=== PATIENT | male | born 1980 | race African-American/Black ===

== ENCOUNTER 2017-06-28 21:25 | Inpatient (IN) | payer OTHER ==
[2017-06-28] MEDS ORDERED: Ondansetron HCl/PF 4 MG/2 ML Vial ONE (22:19)
[2017-06-28 22:59] LABS: #Eosinphils 0.1 thou/uL (0.0-0.7); #Lymphocytes 2.3 thou/uL (1.20-3.40); #Monocytes 1.7 thou/uL (0.11-0.59); #Neutrophils 13.5 thou/uL (1.40-6.50); %Eosinophils 0.8 % (0.0-10.0); %Lymphocytes 13.2 % (21.0-51.0); %Monocytes 9.6 % (0.0-10.0); Hematocrit 28.4 % (42.0-52.0); Mean Platelet Volume 5.3 fL (7.4-10.4); Red Blood Cell (RBC) Count 3.23 mill/uL (4.70-6.10); White Blood Cell (WBC) Count 17.7 thou/uL (4.8-10.8)
[2017-06-28 23:04] LABS: Prothrombin Time 13.9 SEC (12.0-14.7)
[2017-06-28 23:05] LABS: PTT 36.3 SEC (22.9-36.1)
[2017-06-28] MEDS ORDERED: Pantoprazole 40 MG VIAL ONE (23:10)
[2017-06-28] MEDS ORDERED: Pantoprazole 80 MG, Admixture Fee 1 EACH in Sodium Chloride 0.9% 100 ML IVP SCH (23:15)
[2017-06-28 23:19] LABS: ALT (SGPT) 8 U/L (8-55); AST (SGOT) 9 U/L (5-34); Alkaline Phosphatase 56 U/L (40-150); Anion Gap 20 mmol/L (10-20); BUN (Urea Nitrogen) 15 mg/dL (8.9-20.6); Bilirubin, Total 0.2 mg/dL (0.2-1.2); Calc. Creatinine Clearance 0 mL/min (70-130); Calcium 8.4 mg/dL (7.8-10.44); Carbon Dioxide 26 mmol/L (22-29); Chloride 91 mmol/L (98-107); Estimated GFR-MDRD 90; Globulin 3.7 g/dL (2.4-3.5); Protein, Total 6.3 g/dL (6.0-8.3)
[2017-06-29] MEDS ORDERED: Ondansetron HCl/PF 4 MG/2 ML Vial IVP PRN (00:35)
[2017-06-29] MEDS ORDERED: Ondansetron ODT 4 MG TAB SL PRN (00:35)
[2017-06-29 01:37] VITALS: BMI 21.4
[2017-06-29] MEDS ORDERED: Non-Formulary Item 1 EACH (Prednisone [Prednisone] 10 MG) PO SCH (03:00)
[2017-06-29] MEDS ORDERED: HYDROcodone/Acetaminophen 5/325 mg Tablet PO PRN (03:01)
[2017-06-29] MEDS ORDERED: 1/2 NS w/KCL 20 mEq 1,000 ML IV SCH (03:30)
[2017-06-29 05:30] LABS: Anion Gap 18 mmol/L (10-20); BUN (Urea Nitrogen) 15 mg/dL (8.9-20.6); Calc. Creatinine Clearance 106 mL/min (70-130); Calcium 8.3 mg/dL (7.8-10.44); Carbon Dioxide 27 mmol/L (22-29); Chloride 91 mmol/L (98-107); Estimated GFR-MDRD Greater than 90; Magnesium 2.1 mg/dL (1.6-2.6)
[2017-06-29 05:40] LABS: Band 23 % (5-11); Mean Platelet Volume 5.5 fL (7.4-10.4); Myelocyte 1 % (0-0); Neutrophil 55 % (42-75); Polychromasia SLIGHT = 2-3 cells (100X) (0-2/hpf); Red Blood Cell (RBC) Count 3.22 mill/uL (4.70-6.10); White Blood Cell (WBC) Count 16.2 thou/uL (4.8-10.8)
--- NOTE | 2017-06-29 05:40 | HP ---
CHIEF COMPLAINT: Vomiting of coffee grounds and also bloody diarrhea. HISTORY OF PRESENT ILLNESS: This is a 36-year-old pleasant gentleman who is an inmate was brought t o our hospital for evaluation of bloody diarrhea and hematemesis. He was actually transferred from [facility] for a GI evaluation. The patient was diagnosed with Crohn's in March. Ephraim jones says that he has been having bloody diarrhea on and off for the last 2-3 weeks and for the last 2- 3 days has had abdominal pain, nausea, vomiting with some of the vomitus looking like coffee grounds . He denies any fever, chills, dysuria, polyuria, complains of abdominal pain for a day and a half, mostly in the lower abdomen. The pain is dull in nature. PAST MEDICAL HISTORY: Crohn's disease. PAST SURGICAL HISTORY: None. PSYCHIATRIC HISTORY: None. SOCIAL HISTORY: Drinks socially. Denies any drug use. Former tobacco user, smokes cigarettes. ALLERGIES: No known drug allergies. MEDICATIONS: Include mesalamine, prednisone, ciprofloxacin, metronidazole. FAMILY HISTORY: Negative for diabetes and hypertension. REVIEW OF SYSTEMS: Significant for abdominal pain, nausea, vomiting, coffee ground emesis and blood y diarrhea. Otherwise, no fever, no chills, no headache, no appetite change, no urgency. No cough, no chest pain, no dysuria, no polyuria, no memory or mood changes. No neck pain. PHYSICAL EXAMINATION: VITAL SIGNS: Blood pressure is 126/100, pulse is 120, afebrile, breathing comfortably on room air. GENERAL: Patient is lying in bed in no apparent distress. HEENT: Atraumatic, normocephalic. Pupils equally round, react to light. Extraocular movements int act. Mucous membranes are moist. NECK: Supple. No JVD. CHEST: Good breath sounds heard. There are no rales or rhonchi. HEART: S1, S2. No murmurs or gallops. ABDOMEN: Soft, nontender right now, no guarding, no rigidity. EXTREMITIES: No cyanosis, clubbing or edema. Distal pulses present. NEUROLOGICAL: Alert, awake, oriented. No cranial deficits. No sensorimotor deficits. LABORATORY DATA: Potassium was 2.8, sodium is 134, creatinine is 0.9, albumin is 2.6. WBC count is 17, hemoglobin is 9.2. ASSESSMENT AND PLAN: 1. Bloody diarrhea, possibly secondary to Crohn's exacerbation. We will continue home medications and consult GI for further evaluation and recommendations. 2. Abdominal pain, nausea and vomiting with 2-3 episodes of coffee grounds vomitus, will do IV Prot gina for now and follow GI recommendations. Give antiemetics p.r.n. 3. Hypokalemia, possibly secondary to diarrhea. We will replace that. 4. Hyponatremia secondary to diarrhea. 5. Dehydration secondary to diarrhea. We will do stool cultures and C. diff and treat symptomatica lly. 6. Anemia secondary to acute blood loss. We will monitor H\T\H and replace as needed. 7. Protein calorie malnutrition, moderate. We will encourage p.o. intake once patient is better. I ordered WBC count secondary to prednisone. We will monitor this hospital stay. 8. Tachycardia secondary to dehydration. We will give IV fluids. 9. Sequential compression devices for deep venous thrombosis prophylaxis. I will work with GI in further caring for the patient.
[2017-06-29] MEDS ORDERED: Potassium Chloride 20 MEQ/100 ML PREMIX BAG IVPB SCH ×2 (07:45→12:15)
[2017-06-29] MEDS ORDERED: FLU VACC QS2017-18 36 mo. & older 0.5 ML SYRINGE IM ONE (09:00)
[2017-06-29] MEDS: Mesalamine DR 400 mg Capsule PO SCH ×3 (09:13→15:48)
[2017-06-29] MEDS: Ciprofloxacin 500 MG TAB PO SCH ×2 (09:13→21:12)
[2017-06-29] MEDS: metroNIDAZOLE 500 MG TAB PO SCH ×3 (09:13→21:12)
[2017-06-29] MEDS: Potassium Chloride 40 MEQ in Sodium Chloride 0.45% 1,000 ML IV SCH ×2 (09:14→21:11)
--- NOTE | 2017-06-29 12:40 | PRG ---
DATE OF SERVICE: 06/29/2017 SUBJECTIVE: The patient seen and examined at bedside. There are 2 guards in the room. He just had a bowel movement which was bloody. He complains about abdominal cramps. He did not vomit this mor lux. OBJECTIVE: VITAL SIGNS: Blood pressure is 156/78, pulse is 101, temperature is 98.6, respiratory rate is 20, O 2 saturation 100%. HEENT: His head is atraumatic, normocephalic. He has multiple tattoos on his body. Eyes are PERRL A. Sclerae pinkish. Oral mucosa is moist. NECK: Supple, no lymphadenopathy. Thyroid is not palpable. LUNGS: Clear. HEART: S1, S2 normal, no S3, no S4, no murmur. He is tachycardic. ABDOMEN: Quite soft. Mildly tender on palpation. Nondistended. No guarding, no masses. EXTREMITIES: No clubbing, cyanosis or edema. NEUROLOGIC: He is alert and oriented x4. There is no sensorimotor deficit present. Cranial nerves are intact. LABORATORY DATA: Showed white count of 16.2, hemoglobin 9.0, hematocrit 28.0, platelet count is 756 ,000. He has 23 bands. His sodium is 133, potassium 2.5, chloride 91, CO2 of 29, BUN 15, creatinin e 1.02. His microbiology showed positive stage 4 Campylobacter antigen, negative for E. coli, Shiga toxin 1 and 2, negative for Clostridium difficile antigen and toxin. IMPRESSION: 1. Bloody diarrhea with positive test for Campylobacter, which is most likely colitis related to th at infection. This is less likely Crohn's exacerbation. 2. Abdominal pain with nausea and vomiting with 2-3 episodes of coffee ground emesis. The patient is receiving IV Protonix and plastics fabricator or welder is coming to evaluate him. This is most likely rela liliana to #1. 3. Hypokalemia, profound related to diarrhea. It was replaced. He had 20 mEq IV piggyback this mo rning. He is going to have additional 20 now and he is getting IV fluids at 125 mL per hour with 40 mEq of potassium in it. We will continue that. 4. Hyponatremia secondary to diarrhea. 5. Dehydration. We are replacing with IV fluids his volume loss. 6. Anemia, probably acute on chronic. We will check his iron studies 7. Deep vein thrombosis prophylaxis with SCDs. We will follow his potassium level closely with 1 t esting this evening and 1 in the morning.
[2017-06-29 13:02] LABS: Hematocrit 26.2 % (42.0-52.0)
--- NOTE | 2017-06-29 17:40 | CON ---
DATE OF CONSULTATION: 06/29/2017 HISTORY OF PRESENT ILLNESS: Mr. Kenyon is a 36-year-old male. He says he was diagnosed at [facility] earlier this year as having Crohn's disease. He is on Asacol. He has also been seen in the hospital at [facility]. He presents with several weeks of bloody diarrhea. Subsequently, he has been admitted. SOCIAL HISTORY: He is a nonsmoker, nondrinker. He was incarcerated in the [facility]. ALLERGIES: He has no drug allergies. MEDICATIONS: He is reportedly on Asacol, prednisone, Cipro, and Flagyl. FAMILY HISTORY: Negative for inflammatory bowel disease. REVIEW OF SYSTEMS: Otherwise negative. PHYSICAL EXAMINATION: VITAL SIGNS: Afebrile, heart rate is 101, it was 120 earlier, respiratory rate is 20, oximetry is 100%, and blood pressure 156/78. HEENT: Pupils are equal. Sclerae are anicteric. NECK: Supple. LUNGS: Clear. HEART: Regular rhythm. S1 and S2 are normal. ABDOMEN: Soft and nontender. No masses. EXTREMITIES: Without asymmetry. LABORATORY DATA: White count 16.2, hemoglobin 9.0, it was 9.2 last night, and platelets 756, MCV is 87. Sodium 133, potassium 3.5, chloride 91, bicarbonate 27, BUN 15, creatinine 1.02. IMPRESSION: ? Crohn's flare. GI has been consulted. He appears to be hemodynamically stable and then appear to be acutely bleeding. Intake and output need to be recorded. Critical care time 30 min. [facility]
[2017-06-29] MEDS ORDERED: GoLYTELY 4,000 ml Bottle PO SCH (18:30)
[2017-06-29 22:12] LABS: Hematocrit 28.4 % (42.0-52.0)
[2017-06-30 04:16] LABS: Anion Gap 10 mmol/L (10-20); BUN (Urea Nitrogen) 8 mg/dL (8.9-20.6); Calc. Creatinine Clearance 123 mL/min (70-130); Carbon Dioxide 28 mmol/L (22-29); Chloride 93 mmol/L (98-107); Estimated GFR-MDRD Greater than 90
[2017-06-30 04:55] LABS: Band 19 % (5-11); Hematocrit 24.7 % (42.0-52.0); Mean Platelet Volume 5.1 fL (7.4-10.4); Neutrophil 58 % (42-75); Reactive Lymphocytes 1 % (0-10); Red Blood Cell (RBC) Count 2.82 mill/uL (4.70-6.10); White Blood Cell (WBC) Count 14.7 thou/uL (4.8-10.8)
[2017-06-30] MEDS: Pantoprazole 80 MG, Admixture Fee 1 EACH in Sodium Chloride 0.9% 100 ML IVP SCH ×2 (05:05→12:31)
--- NOTE | 2017-06-30 08:33 | CON ---
DATE OF CONSULTATION: 06/29/2017 REFERRING PHYSICIAN: Dr. Rocio Ibrahim, [facility]. REASON FOR CONSULTATION: 1. Nausea, vomiting, and history of coffee-ground emesis. 2. History of diarrhea and blood in the stool. HISTORY OF PRESENT ILLNESS: Mr. Donato Kenyon is a 36-year-old -[place] male who is a [facility] inmate. The patient was brought to the ER because of history of nausea, vomiting, and vomiting coffee-ground materials. He also have some diarrhea, abdominal cramping and bleeding over the last 4 days. The patient at present appears very comfortable. He is in no acute distress. He has no abdominal pain at the present time. The patient was hospitalized in April of 2017 at [facility] with similar symptoms. He had a colonoscopy and was found to have Crohn's disease. Apparently, he stayed in the hospital over 7 -8 days. He does not know the name of the medicine he was given. Three weeks after that initial episode, he went to [facility] in [place] and was told he had acid reflux. He was on different medication, but does not know the name of medication. The patient was doing well until 3 weeks ago when he started recurrence of the symptoms again. He is having multiple watery stools, abdominal cramping and also blood in the stool off and on. The patient told me that he had similar episode of this abdominal cramping, diarrhea, and bleeding about 2 years ago. The symptoms lasted for about 3-4 weeks. He did not tell me that his symptoms went away by itself. The patient has no history of fever , no history of weight loss. The patient's medications list includes mesalamine, prednisone, Cipro and metronidazole. He does not know the dose of the medication. He has multiple watery stools today. The stools were actually brownish with some blood clots in them. Since admission, he is on a clear-liquid diet. He has had no nausea or vomiting today. He has no other relevant history. ALLERGIES: None. SOCIAL HISTORY: The patient is an inmate since 2007. He is a smoker. History of alcohol in the past. MEDICAL ILLNESSES: 1. Recently diagnosed Crohn's disease, 04/2017. 2. Chronic acid reflux. SURGERIES: None. PSYCHIATRIC HISTORY: No history of depression or anxiety. FAMILY HISTORY: No family history of hypertension, diabetes, IBD, etc. REVIEW OF SYSTEMS: Remarkable basically for abdominal pain, nausea, vomiting and history of coffee-ground emesis, diarrhea, lower abdominal cramping, and blood in the stool. PHYSICAL EXAMINATION: GENERAL: The patient appears comfortable. He is awake, alert, and communicative. VITAL SIGNS: His pulse is in the 90s, blood pressure is 120/80. HEENT: Conjunctivae clear. NECK: Supple. No adenitis or thyromegaly noted. CARDIOVASCULAR: First and second heart sounds normal. LUNGS: Clear to auscultation. ABDOMEN: Soft to palpate. Abdomen is nontender. Abdomen is nondistended. There are no organomegaly or masses. Bowel sounds are normal. EXTREMITIES: Reveal no edema. LABORATORY DATA: Shows sodium to be 134, potassium 2.8, chloride normal. WBC 17,000, hemoglobin 9.2, albumin 2.6. CLINICAL IMPRESSION: 1. A 36-year-old male with a history of recent diagnosis of Crohn's disease, 04/2017. He presents with 3 weeks history of abdominal cramping, diarrhea, and rectal bleeding. 2. History of chronic acid reflux. 3. History of coughing and vomiting. RECOMMENDATIONS: IV fluids, symptomatic treatment, plan for EGD and colonoscopy tomorrow. I will make further recommendations after the endoscopic studies. MTDD
[2017-06-30] MEDS ORDERED: Potassium Chloride 40 MEQ in Sodium Chloride 0.9% 250 ML 250 ML IVPB SCH (08:45)
[2017-06-30] MEDS ORDERED: Potassium Chloride 20 MEQ TAB PO SCH ×2 (08:45→20:00)
--- NOTE | 2017-06-30 09:06 | PRG ---
DATE OF SERVICE: 06/30/2017 SUBJECTIVE: The patient is seen and examined at bedside. He still had some abdominal cramps and bl oody watery stools. OBJECTIVE: VITAL SIGNS: Blood pressure is 126/72, pulse is 84, temperature 98.3, respiratory rate is 16, and O 2 saturation 99% on room air. HEENT: His head is atraumatic, normocephalic. Eyes are PERRLA. Conjunctivae pinkish. Oral mucosa is moist. NECK: Supple, no lymphadenopathy. LUNGS: Clear. HEART: S1, S2 normal, no S3, no S4. No any murmur. ABDOMEN: Soft, somewhat tender in the epigastric area. No guarding. No masses. EXTREMITIES: No clubbing, cyanosis or edema. NEUROLOGIC: He is an alert and oriented x4. There is no any sensory or motor deficit present. Brush Maker nial nerves are intact. LABORATORY DATA: Shows sodium of 128, potassium 2.7, chloride 93, CO2 28, BUN 8, creatinine 0.88, g lucose 111. White count of 14.7, hemoglobin 7.8, hematocrit 24.7, and platelet count is 674. Micro biology as before, positive for Campylobacter antigen. IMPRESSION: 1. Bloody diarrhea, enteritis with Campylobacter versus exacerbation of Crohn's disease. The patie nt is going to have colonoscopy done by Dr. Walls this morning after his potassium is replaced. 2. Hypokalemia, recurrent, secondary to diarrhea. He is going to have 40 mEq of KCl before procedu re and we will give him additional 40 after that. 3. Abdominal pain with nausea and vomiting related to #1. 4. Dehydration, improved. 5. Anemia. His hemoglobin is again down to 7.8. We will watch him closely, if he needs to have an y transfusion of packed red blood cells. For now, we will continue his deep venous thrombosis proph ylaxis with sequential compression devices.
[2017-06-30] MEDS: Mesalamine DR 400 mg Capsule PO SCH ×3 (09:19→17:26)
[2017-06-30] MEDS: Ciprofloxacin 500 MG TAB PO SCH (09:23)
[2017-06-30] MEDS: metroNIDAZOLE 500 MG TAB PO SCH ×2 (09:23→20:17)
--- NOTE | 2017-06-30 10:37 | PRG ---
DATE OF SERVICE: 06/30/2017 SUBJECTIVE: Mr. Kenyon is still having some rectal bleeding. He is tentatively on the endoscopy schedule today, but he was put on hold, because of electrolyte ab normalities. OBJECTIVE: VITAL SIGNS: He is afebrile, heart rate is 84, respiratory rate is 16, oximetry is 99, blood pressu re 126/72. LUNGS: Clear. HEART: Regular rhythm. ABDOMEN: Soft. LABORATORY: Hemoglobin fell from 9.2 to 7.8, white count 14.7, platelets 674. IMPRESSION: Gastrointestinal blood loss, presumably secondary to Crohn's, tentatively on schedule f or endoscopy. He is stable for endoscopy in my opinion.
[2017-06-30] MEDS: Potassium Chloride 40 MEQ in Sodium Chloride 0.45% 1,000 ML IV SCH (12:31)
[2017-06-30] MEDS ORDERED: Potassium Chloride 20 MEQ/100 ML PREMIX BAG IVPB SCH (15:30)
[2017-06-30] MEDS ORDERED: Lidocaine 1% PF 5 ML VIAL ONE (16:32)
[2017-06-30] MEDS ORDERED: Propofol 200 MG/20 ML VIAL ONE (16:32)
[2017-06-30] MEDS ORDERED: Potassium Chloride 20 MEQ in Sodium Chloride 0.9% 250 ML 250 ML IVPB SCH (16:45)
[2017-06-30] MEDS: metroNIDAZOLE 500 MG in Premix Bag 1 BAG IVPB SCH (23:25)
--- NOTE | 2017-07-01 01:21 | OP ---
PREPROCEDURE DIAGNOSES: 1. History of colitis, new to this hospital. 2. Severe diarrhea. 3. Hypokalemia. 4. Anemia. 5. Questionable history of prior reflux. POSTPROCEDURE DIAGNOSES: 1. Esophagogastroduodenoscopy normal except for one small erosion in the stomach. Biopsies taken f rom the small bowel and the erosions in the stomach. 2. Severe colitis from the cecum to the anus with edema, exudate, loss of vascular pattern, submuco joseph hemorrhage, and in the left colon, areas of deep serpiginous ulcers, ulcerative colitis versus C rohn's. Multiple biopsies obtained. 3. Normal terminal ileum. RECOMMENDATIONS: 1. Continue Cipro and Flagyl. 2. IV Solu-Medrol. 3. Change IV fluid D5 normal saline with 20 of K. 4. If patient fails to respond to steroidal treatment, we would consider Remicade. 5. Anticipations. We will check hepatitis B serologies for TB exposure. ANESTHESIA: TIVA. PROCEDURE IN DETAIL: After the patient was informed of the risks, benefits, possible complications of endoscopy including perforation bleeding, reactions to medication, and aspiration, informed conse nt was obtained. The patient was brought to endoscopy suite where he was sedated in gradual fashion . Once he was comfortable, a bite block was placed in incisural orifice. The endoscope was advance d through the esophagus, stomach and second and third portion of duodenum and slowly removed. There was good visualization of mucosa. There were no masses, lesions or arteriovenous malformations syed ntified. In the esophagus, the stomach had one small erosion, it was biopsied, it was consistent wi th gastritis at the proximal antrum. The duodenum was normal to the third portion, random biopsies were taken there. The scope was then removed. The patient was turned in the room. A rectal exam w as performed. The endoscope was advanced through anal canal, through the colon to the ileum. The i leum was normal. The colon was severely diseased with severe colitis throughout with some deep ulce rations, and the right colon biopsies were taken from the right, transverse, ascending colon and angelica cending colon. Retroflexion was not performed due to . The scope was removed. The patient t olerated the procedure well with no complications.
[2017-07-01 04:41] LABS: #Lymphocytes 1.5 thou/uL (1.20-3.40); #Monocytes 0.5 thou/uL (0.11-0.59); #Neutrophils 12.6 thou/uL (1.40-6.50); %Basophils 0.2 % (0.0-1.0); %Eosinophils 0.1 % (0.0-10.0); %Monocytes 3.5 % (0.0-10.0); Hematocrit 25.6 % (42.0-52.0); Mean Platelet Volume 5.2 fL (7.4-10.4); White Blood Cell (WBC) Count 14.6 thou/uL (4.8-10.8)
[2017-07-01 05:04] LABS: ALT (SGPT) 7 U/L (8-55); AST (SGOT) 9 U/L (5-34); Alkaline Phosphatase 53 U/L (40-150); Anion Gap 13 mmol/L (10-20); BUN (Urea Nitrogen) 6 mg/dL (8.9-20.6); Bilirubin, Total Less than 0.2 mg/dL (0.2-1.2); Calc. Creatinine Clearance 122 mL/min (70-130); Calcium 8.2 mg/dL (7.8-10.44); Carbon Dioxide 24 mmol/L (22-29); Chloride 101 mmol/L (98-107); Estimated GFR-MDRD Greater than 90; Globulin 3.4 g/dL (2.4-3.5); Magnesium 1.8 mg/dL (1.6-2.6); Phosphorus 3.5 mg/dL (2.3-4.7); Protein, Total 5.7 g/dL (6.0-8.3)
[2017-07-01] MEDS: Potassium Chloride 40 MEQ in Sodium Chloride 0.45% 1,000 ML IV SCH ×2 (06:17→17:35)
[2017-07-01] MEDS: metroNIDAZOLE 500 MG in Premix Bag 1 BAG IVPB SCH ×3 (06:29→20:51)
[2017-07-01] MEDS: Mesalamine DR 400 mg Capsule PO SCH ×3 (08:15→18:18)
[2017-07-01] MEDS: Enoxaparin Sodium 30 MG/0.3 ML SYRINGE SC SCH (08:18)
--- NOTE | 2017-07-01 11:55 | PRG ---
DATE OF SERVICE: 07/01/2017 SUBJECTIVE: The patient was seen and examined at the bedside. He is doing somewhat better, amount of pain in his abdomen is decreased and it looks like the bloody diarrhea is getting less blood each time he moves bowels. OBJECTIVE: VITAL SIGNS: Blood pressure is 130/63, pulse is 84, temperature is 97.8 and respiratory rate is 20, O2 saturation is 100% on room air. GENERAL: He is in handcuffs. He is an inmate. HEENT: Head is atraumatic, normocephalic. Sclerae nonicteric. Pupils are responding to light prop erly. His conjunctivae are palish. Oral mucosa is moist. NECK: Supple, no lymphadenopathy. LUNGS: Clear. HEART: S1, S2 normal, no S3, no S4, no any murmur. ABDOMEN: Soft, mildly tender to palpation. No guarding, no masses. EXTREMITIES: No clubbing, cyanosis or edema. He has good pulses on both tibialis posterior and emerita salis pedis arteries similar bilaterally. NEUROLOGIC: He is alert and oriented x4. There is no any sensorimotor deficit present. Cranial ne rves are intact. LABORATORY DATA: Showed a white count of 14.6, hemoglobin of 8.0, hematocrit 25.6, platelet count i s 717. Sodium of 134, potassium 3.7, chloride 101, CO2 of 24, BUN 6, creatinine 0.89, total bilirub in less than 0.2. ALT 7, AST 9, alkaline phosphatase 53. Hepatitis B surface antigen nonreactive a nd hepatitis B surface antibody nonreactive. Index is 2.44, which is considered nonreactive. Non-i mmune to HPV infection. IMPRESSION AND PLAN: 1. Bloody diarrhea enteritis with post colonoscopy findings of severe colitis from the cecum to the anus with edema, exudate, loss of vascular pattern, submucosal hemorrhage and in the left colon are as of deep serpiginous ulcers, ulcerative colitis versus Crohn's disease, status post multiple biops ies. Terminal ileum was normal and EGD was normal except for one small erosion in the stomach and b iopsies were done at this level. The patient was placed on IV Solu-Medrol 20 mg every 8 hours IV pu sh, it seems to be improving and we will continue current regimen and he will be switched to oral pr ednisone soon most likely and we should have results back probably in the beginning of the next week that is pathology report. 2. Hypokalemia, significantly improved with multiple doses of potassium chloride supplementation. 3. Dehydration, improved. 4. Anemia. Hemoglobin stable at 8.0. At this point, we will continue followup of those levels radha stevany and will follow recommendation by GI specialist. We will have CBCs for DVT prophylaxis and we will continue him on metronidazole and Cipro and we will continue IV Protonix 40 mg every 24 hours I V push. Also, he is on mesalamine 800 mg 3 times a day.
[2017-07-01] MEDS ORDERED: Potassium Chloride 20 MEQ TAB PO SCH (13:00)
--- NOTE | 2017-07-01 13:09 | PRG ---
DATE OF SERVICE: 07/01/2017 SERVICE: Pulmonary Medicine. INTERVAL HISTORY: The patient is doing fine from a respiratory standpoint. He denies any shortness of breath or chest discomfort. He is otherwise returning to his usual state of health. He has no specific complaints right now other than he does not like dark broth and would prefer the clear brot h. PHYSICAL EXAMINATION: VITAL SIGNS: Afebrile, pulse 87, blood pressure 120/65, respirations 20 and saturation 97% on room air. GENERAL: The patient is awake and alert, in no apparent distress. LUNGS: Decent air entry. There is no prolonged expiratory phase, wheezing, rhonchi or crackles. HEART: Normal rate and regular. ABDOMEN: Soft, nontender and nondistended. Bowel sounds are positive. MUSCULOSKELETAL: No cyanosis or clubbing. No pitting in the bilateral lower extremities. NEUROLOGIC: Grossly nonfocal. LABORATORY DATA: WBC 14.6, hemoglobin 8.0, platelets 717,000 and stable. INR 1.1. Basic metabolic profile and liver function studies are unremarkable. Potassium 3.7. Campylobacter antigen is posi tive. C. diff and Shiga toxin are negative. E. coli is negative. ASSESSMENT: 1. Colitis, likely secondary to inflammatory bowel disease. 2. Campylobacter antigen positivity. 3. Acute blood loss anemia, stable. PLAN: The patient is stable for transition out of the IMCU to the medical floor. Pulmonary will co ntinue to follow up for the time being.
[2017-07-01] MEDS ORDERED: Magnesium 2 GM/NS 0.9% 100 ML 2 GM in Premix Bag 1 BAG IVPB SCH (13:15)
--- NOTE | 2017-07-01 16:50 | PRG ---
DATE OF SERVICE: 07/01/2017 SUBJECTIVE: Kostas notes he has bowel movement every hour at night; it was a little bit less last ni ght, he only had one so far today, vague left lower quadrant pain. No nausea, no vomiting. MEDICATIONS: Lovenox, levofloxacin, 800 mg t.i.d., methylprednisolone 20 mg IV q.8, metronida zole 500 q.8, Protonix, normal saline with potassium 40 mg 75 an hour. OBJECTIVE: GENERAL: He is resting comfortably in bed. VITAL SIGNS: Pulse is down to 84, temperature is 97, respirations 18, and blood pressure 130/67. LUNGS: Clear. HEART: Regular rhythm. ABDOMEN: Positive bowel sounds, nondistended. No rebound or guarding. LABORATORY DATA: Hemoglobin is 8, white count 14, and platelet count 717. Sodium 134, potassium 3. 7, BUN and creatinine are 6 and 0.89, glucose 122. Liver function tests normal and albumin 2.3. ASSESSMENT: 1. Severe ulcerative colitis, Clostridium difficile negative. 2. Campylobacter assay positive, this is probably a false positive. 3. Anemia secondary to chronic ulcerative colitis. 4. Thrombocytosis secondary to chronic ulcerative colitis. 5. On anticoagulation for deep venous thrombosis prophylaxis. Patient is at high risk with ulcerat karime colitis and sedentary position. RECOMMENDATIONS: Continue liquids. Continue IV steroids. Continue antibiotics. We will check mag nesium and phosphorus with tomorrow's labs as well.
[2017-07-01] MEDS: Pantoprazole 40 MG VIAL IVP SCH (20:52)
[2017-07-02] MEDS: metroNIDAZOLE 500 MG in Premix Bag 1 BAG IVPB SCH ×3 (05:27→21:02)
[2017-07-02] MEDS: Potassium Chloride 40 MEQ in Sodium Chloride 0.45% 1,000 ML IV SCH ×2 (06:26→17:48)
[2017-07-02 06:34] LABS: Band 13 % (5-11); Hematocrit 27.7 % (42.0-52.0); Mean Platelet Volume 5.5 fL (7.4-10.4); Neutrophil 63 % (42-75); Nucleated RBC 1 % (0); Polychromasia SLIGHT = 2-3 cells (100X) (0-2/hpf); Red Blood Cell (RBC) Count 3.15 mill/uL (4.70-6.10); White Blood Cell (WBC) Count 11.5 thou/uL (4.8-10.8)
[2017-07-02 06:36] LABS: Anion Gap 12 mmol/L (10-20); BUN (Urea Nitrogen) 4 mg/dL (8.9-20.6); Calc. Creatinine Clearance 139 mL/min (70-130); Calcium 8.4 mg/dL (7.8-10.44); Carbon Dioxide 23 mmol/L (22-29); Chloride 104 mmol/L (98-107); Estimated GFR-MDRD Greater than 90; Magnesium 1.7 mg/dL (1.6-2.6); Phosphorus 3.4 mg/dL (2.3-4.7)
[2017-07-02] MEDS: Mesalamine DR 400 mg Capsule PO SCH ×3 (08:02→17:49)
[2017-07-02] MEDS: Enoxaparin Sodium 30 MG/0.3 ML SYRINGE SC SCH (08:02)
[2017-07-02] MEDS ORDERED: Zolpidem Tartrate 5 MG TAB PO PRN (09:04)
[2017-07-02] MEDS ORDERED: hydrALAZINE 20 MG/ML VIAL SLOW IVP PRN (09:04)
[2017-07-02] MEDS ORDERED: Loratadine 10 MG TAB PO PRN (09:04)
[2017-07-02] MEDS ORDERED: Sodium Chloride 0.65% Nasal 44 ML BOT EA NARE PRN (09:04)
[2017-07-02] MEDS ORDERED: Artificial Tears 18 DROP/0.9 ML EA EYE PRN (09:04)
[2017-07-02] MEDS ORDERED: Ondansetron ODT 4 MG TAB PO PRN (09:04)
[2017-07-02] MEDS ORDERED: Diabetic Tussin 200 MG/10 ML UDCUP PO PRN (09:04)
[2017-07-02] MEDS ORDERED: Acetaminophen 325 MG TAB PO PRN (09:04)
[2017-07-02] MEDS ORDERED: Ondansetron HCl/PF 4 MG/2 ML Vial IVP PRN (09:04)
[2017-07-02] MEDS ORDERED: Eucerin (Mineral Oil/Petrolatum,White) 30 gm Jar TOP PRN (09:04)
[2017-07-02] MEDS ORDERED: Mag-Al 1200 mg/1200 mg/30 ML UDCUP PO PRN (09:04)
[2017-07-02] MEDS ORDERED: HYDROcodone/Acetaminophen 5/325 mg Tablet PO PRN (09:04)
--- NOTE | 2017-07-02 12:56 | PDOC.PN ---
- Subjective Encounter Start Date: 07/02/17 Encounter Start Time: 09:10 -: old records requested/rev pt still has bloody diarrhoea, no fever, no abdominal pain - Objective Resuscitation Status: Resuscitation Status FULL:Full Resuscitation MAR Reviewed: Yes Vital Signs & Weight: Vital Signs (12 hours) Temp Pulse Resp BP Pulse Ox 07/02/17 08:51 98.0 F 85 18 124/76 99 07/02/17 08:00 98.0 F 85 18 99 07/02/17 06:02 98.2 F 77 16 123/77 Weight Weight 164 lb 4.8 oz I&O: 07/01/17 07/02/17 07/03/17 06:59 06:59 06:59 Intake Total 480 5020 Output Total 2700 Balance 480 2320 Result Diagrams: 07/02/17 04:58 07/02/17 04:58 Phys Exam - Physical Examination Constitutional: NAD HEENT: PERRLA, moist MMs, sclera anicteric Neck: no JVD, supple Respiratory: no wheezing, no rales, no rhonchi Cardiovascular: RRR, no significant murmur, no rub Gastrointestinal: soft, non-tender, no distention, positive bowel sounds Musculoskeletal: no edema, pulses present Neurological: non-focal, normal sensation, moves all 4 limbs Psychiatric: normal affect, A&O x 3 Skin: no rash, normal turgor Dx/Plan (1) Campylobacter antigen positive Code(s): A04.5 - CAMPYLOBACTER ENTERITIS Status: Acute (2) Exacerbation of ulcerative colitis Code(s): K51.90 - ULCERATIVE COLITIS, UNSPECIFIED, WITHOUT COMPLICATIONS Status: Acute (3) Reactive thrombocytosis Code(s): R79.89 - OTHER SPECIFIED ABNORMAL FINDINGS OF BLOOD CHEMISTRY Status : Acute (4) Anemia of chronic disease Code(s): D63.8 - ANEMIA IN OTHER CHRONIC DISEASES CLASSIFIED ELSEWHERE Status : Chronic (5) Hypokalemia Code(s): E87.6 - HYPOKALEMIA Status: Resolved (6) Hyponatremia Code(s): E87.1 - HYPO-OSMOLALITY AND HYPONATREMIA Status: Resolved - Plan cont current plan of care, continue antibiotics * continue levaquin and flagyl * continue IV steroid * GI following * advance to full liquid diet * medication reviewed as below * symptomatic treatment. Review of Systems - Review of Systems Constitutional: negative: Fever, Chills, Sweats, Weakness, Malaise, Other Eyes: negative: Pain, Vision Change, Conjunctivae Inflammation, Eyelid Inflammation, Redness, Other ENT: negative: Ear Pain, Ear Discharge, Nose Pain, Nose Discharge, Nose Congestion, Mouth Pain, Mouth Swelling, Throat Pain, Throat Swelling, Other Respiratory: negative: Cough, Dry, Shortness of Breath, Hemoptysis, SOB with Excertion, Pleuritic Pain, Sputum, Wheezing Cardiovascular: negative: Chest Pain, Palpitations, Orthopnea, Paroxysmal Noc. Dyspnea, Edema, Light Headedness, Other Gastrointestinal: Diarrhea, Hematochezia. negative: Nausea, Vomiting, Abdominal Pain, Constipation, Melena, Other Genitourinary: negative: Dysuria, Frequency, Incontinence, Hematuria, Retention , Other Musculoskeletal: negative: Neck Pain, Shoulder Pain, Arm Pain, Back Pain, Hand Pain, Leg Pain, Foot Pain, Other Skin: negative: Rash, Lesions, Panchito, Bruising, Other Neurological: negative: Weakness, Numbness, Incoordination, Change in Speech, Confusion, Seizures, Other - Medications/Allergies Allergies/Adverse Reactions: Allergies Allergy/AdvReac Type Severity Reaction Status Date / Time No Known Drug Allergies Allergy Verified 06/30/17 04:37 Medications: Current Medications Acetaminophen (Tylenol) 650 mg PO Q4H PRN PRN Reason: Headache/Fever or Mild Pain Hydrocodone Bitart/Acetaminophen ([place] 5/325) 1 tab PO Q4H PRN PRN Reason: Moderate Pain (4-6) Al Hydroxide/Mg Hydroxide (Maalox) 15 ml PO Q4H PRN PRN Reason: Heartburn or Indigestion Artificial Tears (Tears Naturale) 0 drop EA EYE PRN PRN PRN Reason: Dry Eyes Enoxaparin Sodium (Lovenox) 30 mg SC 0900 [facility] Last Admin: 07/02/17 08:02 Dose: 30 mg Guaifenesin (Robitussin Sf) 200 mg PO Q4H PRN PRN Reason: Cough Hydralazine HCl (Apresoline) 10 mg SLOW IVP Q4H PRN PRN Reason: Systolic BP > 180 Potassium Chloride 40 meq/ (Sodium Chloride) 1,020 mls @ 75 mls/hr IV .[id number] [facility] Last Admin: 07/02/17 06:26 Dose: Not Given Levofloxacin 500 mg/ Device 100 mls @ 100 mls/hr IVPB 1800 [facility] Last Admin: 07/01/17 17:39 Dose: 100 mls Metronidazole 500 mg/ Device 100 mls @ 100 mls/hr IVPB Q8HR [facility] Last Admin: 07/02/17 05:27 Dose: 100 mls Loratadine (Claritin) 10 mg PO DAILYPRN PRN PRN Reason: Sinus Symptoms Mesalamine (Delzicol Dr) 800 mg PO TID-WM [facility] Last Admin: 07/02/17 08:02 Dose: 800 mg Methylprednisolone Sodium Succinate (Solu-Medrol) 20 mg IVP Q8HR [facility] Last Admin: 07/02/17 05:27 Dose: 20 mg Mineral Oil/White Petrolatum (Eucerin Cream) 0 gm TOP BIDPRN PRN PRN Reason: Dry Skin Ondansetron HCl (Zofran Odt) 4 mg PO Q6H PRN PRN Reason: Nausea/Vomiting Ondansetron HCl (Zofran) 4 mg IVP Q6H PRN PRN Reason: Nausea/Vomiting Pantoprazole Sodium (Protonix) 40 mg IVP 2100 [facility] Last Admin: 07/01/17 20:52 Dose: 40 mg Sodium Chloride (Flush - Normal Saline) 10 ml IVF Q12HR [facility] Last Admin: 07/02/17 08:03 Dose: Not Given Sodium Chloride (Flush - Normal Saline) 10 ml IVF PRN PRN PRN Reason: Saline Flush Sodium Chloride ([place] Nasal [place] 0.65%) 0 ml EA NARE QIDPRN PRN PRN Reason: Nasal Congestion Zolpidem Tartrate (Ambien) 5 mg PO HSPRN PRN PRN Reason: Insomnia
--- NOTE | 2017-07-02 16:31 | PRG ---
DATE OF SERVICE: 07/02/2017 SUBJECTIVE: Mr. Kenyon states he is about 50% better from when he came in. He is having about half the bowel movements he was. He is still having a little bit of cramping but not as much and he has less bleeding. MEDICATIONS: Include p.r.n. Tylenol, Maalox, Lovenox 30 subcu, Apresoline, hydrocodone, mesalamine 800 mg t.i.d., Solu-Medrol 20 IV q. 8 hours, Protonix, normal saline with 40 of potassium at 75 an h our. OBJECTIVE: GENERAL: He is in no distress, watching football on TV. ABDOMEN: Nontender. LABORATORY STUDIES: White count is 11.5, hemoglobin is 8, platelet count is 575. Electrolytes are within normal limits. Magnesium and phosphorus were 1.7 and 3.4, respectively. ASSESSMENT AND PLAN: Severe ulcerative colitis, improving. Continue IV steroids. Continue oral 5- ASA drugs. Advance diet to soft low-fiber diet.
--- NOTE | 2017-07-02 16:53 | PRG ---
DATE OF SERVICE: 07/02/2017 SERVICE: Pulmonary Medicine. INTERVAL HISTORY: The patient is doing great from a respiratory standpoint. He denies any recurren t fevers, chills, nausea or vomiting. Otherwise, he is returning to his usual state of health. He has no specific complaints of nausea, vomiting or chest discomfort. PHYSICAL EXAMINATION: VITAL SIGNS: Afebrile, pulse 85, blood pressure 124/76, respirations 18 and saturation 99% on room air. GENERAL: Patient is awake and alert, in no apparent distress. LUNGS: Excellent air entry with no prolonged expiratory phase, wheezing or crackles. HEART: Normal rate, regular. ABDOMEN: Soft, nontender and nondistended. Bowel sounds positive. MUSCULOSKELETAL: No cyanosis or clubbing. No pitting in the bilateral lower extremities. NEUROLOGIC: Grossly nonfocal. LABORATORY DATA: WBC 11.5. Hemoglobin 8.08 and stable. Platelets 575,000 and down trending. Basi c metabolic profile is essentially unremarkable with a normal magnesium and phosphorus. He demonstr ates hepatitis B immunization. HIV is unremarkable. ASSESSMENT: 1. Acute blood loss anemia. 2. Colitis, likely secondary to an inflammatory bowel disease. 3. Campylobacter antigen positivity. PLAN: We are awaiting the pathology on the biopsy of the colon. Hopefully, we will have some resul ts here shortly. Dr. Huitron will resume care in the morning. Empiric antibiotics will be continued.
[2017-07-02] MEDS: Pantoprazole 40 MG VIAL IVP SCH (21:01)
[2017-07-03] MEDS: metroNIDAZOLE 500 MG in Premix Bag 1 BAG IVPB SCH ×3 (05:33→21:04)
[2017-07-03] MEDS: Mesalamine DR 400 mg Capsule PO SCH ×3 (08:30→17:48)
[2017-07-03] MEDS: Enoxaparin Sodium 30 MG/0.3 ML SYRINGE SC SCH (08:31)
[2017-07-03] MEDS: Potassium Chloride 40 MEQ in Sodium Chloride 0.45% 1,000 ML IV SCH ×2 (08:32→11:55)
--- NOTE | 2017-07-03 13:27 | PRG ---
DATE OF SERVICE: 07/03/2017 Mr. Kenyon feels that his bowel movements are less bloody. It was Dr. Topete impression after endoscopy that Mr. Kenyon has ulcerative colitis. PLAN: Continue current medical management. He appears stable.
--- NOTE | 2017-07-03 13:41 | PDOC.PN ---
- Subjective Encounter Start Date: 07/03/17 Encounter Start Time: 08:55 Patient seen and examined. No new complaints. No overnight events, has 3-4 diarrhoea last night - Objective Resuscitation Status: Resuscitation Status FULL:Full Resuscitation MAR Reviewed: Yes Vital Signs & Weight: Vital Signs (12 hours) Temp Pulse Resp BP Pulse Ox 07/03/17 08:00 97.6 F 76 16 100 07/03/17 07:19 97.6 F 76 16 145/81 H 100 Weight Weight 164 lb 4.8 oz I&O: 07/02/17 07/03/17 07/04/17 06:59 06:59 06:59 Intake Total 5020 1700 Output Total 2700 70 Balance 2320 1630 Result Diagrams: 07/02/17 04:58 07/02/17 04:58 Phys Exam - Physical Examination Constitutional: NAD HEENT: PERRLA, moist MMs, sclera anicteric Neck: no JVD, supple Respiratory: no wheezing, no rales, no rhonchi Cardiovascular: RRR, no significant murmur, no rub Gastrointestinal: soft, non-tender, no distention, positive bowel sounds Musculoskeletal: no edema, pulses present Neurological: non-focal, normal sensation Psychiatric: normal affect, A&O x 3 Skin: no rash, normal turgor Dx/Plan (1) Campylobacter antigen positive Code(s): A04.5 - CAMPYLOBACTER ENTERITIS Status: Acute (2) Exacerbation of ulcerative colitis Code(s): K51.90 - ULCERATIVE COLITIS, UNSPECIFIED, WITHOUT COMPLICATIONS Status: Acute (3) Reactive thrombocytosis Code(s): R79.89 - OTHER SPECIFIED ABNORMAL FINDINGS OF BLOOD CHEMISTRY Status : Acute (4) Anemia of chronic disease Code(s): D63.8 - ANEMIA IN OTHER CHRONIC DISEASES CLASSIFIED ELSEWHERE Status : Chronic (5) Hypokalemia Code(s): E87.6 - HYPOKALEMIA Status: Resolved (6) Hyponatremia Code(s): E87.1 - HYPO-OSMOLALITY AND HYPONATREMIA Status: Resolved - Plan cont current plan of care, continue antibiotics * continue iv levaquin and flagyl * continue iv steroid * slowly improving * will discharge when cleared by GI * medication reviewed as below * symptomatic treatment. Review of Systems - Review of Systems Eyes: negative: Pain, Vision Change, Conjunctivae Inflammation, Eyelid Inflammation, Redness, Other ENT: negative: Ear Pain, Ear Discharge, Nose Pain, Nose Discharge, Nose Congestion, Mouth Pain, Mouth Swelling, Throat Pain, Throat Swelling, Other Respiratory: negative: Cough, Dry, Shortness of Breath, Hemoptysis, SOB with Excertion, Pleuritic Pain, Sputum, Wheezing Cardiovascular: negative: Chest Pain, Palpitations, Orthopnea, Paroxysmal Noc. Dyspnea, Edema, Light Headedness, Other Gastrointestinal: Diarrhea, Hematochezia. negative: Nausea, Vomiting, Abdominal Pain, Constipation, Melena, Other Genitourinary: negative: Dysuria, Frequency, Incontinence, Hematuria, Retention , Other Musculoskeletal: negative: Neck Pain, Shoulder Pain, Arm Pain, Back Pain, Hand Pain, Leg Pain, Foot Pain, Other Skin: negative: Rash, Lesions, Panchito, Bruising, Other - Medications/Allergies Allergies/Adverse Reactions: Allergies Allergy/AdvReac Type Severity Reaction Status Date / Time No Known Drug Allergies Allergy Verified 06/30/17 04:37 Medications: Current Medications Acetaminophen (Tylenol) 650 mg PO Q4H PRN PRN Reason: Headache/Fever or Mild Pain Hydrocodone Bitart/Acetaminophen ([place] 5/325) 1 tab PO Q4H PRN PRN Reason: Moderate Pain (4-6) Al Hydroxide/Mg Hydroxide (Maalox) 15 ml PO Q4H PRN PRN Reason: Heartburn or Indigestion Artificial Tears (Tears Naturale) 0 drop EA EYE PRN PRN PRN Reason: Dry Eyes Enoxaparin Sodium (Lovenox) 30 mg SC 0900 [facility] Last Admin: 07/03/17 08:31 Dose: 30 mg Guaifenesin (Robitussin Sf) 200 mg PO Q4H PRN PRN Reason: Cough Hydralazine HCl (Apresoline) 10 mg SLOW IVP Q4H PRN PRN Reason: Systolic BP > 180 Potassium Chloride 40 meq/ (Sodium Chloride) 1,020 mls @ 75 mls/hr IV .[id number] [facility] Last Admin: 07/03/17 11:55 Dose: 1,020 mls Levofloxacin 500 mg/ Device 100 mls @ 100 mls/hr IVPB 1800 [facility] Last Admin: 07/02/17 17:49 Dose: 100 mls Metronidazole 500 mg/ Device 100 mls @ 100 mls/hr IVPB Q8HR [facility] Last Admin: 07/03/17 05:33 Dose: 100 mls Loratadine (Claritin) 10 mg PO DAILYPRN PRN PRN Reason: Sinus Symptoms Mesalamine (Delzicol Dr) 800 mg PO TID-WM [facility] Last Admin: 07/03/17 11:55 Dose: 800 mg Methylprednisolone Sodium Succinate (Solu-Medrol) 20 mg IVP Q8HR [facility] Last Admin: 07/03/17 05:33 Dose: 20 mg Mineral Oil/White Petrolatum (Eucerin Cream) 0 gm TOP BIDPRN PRN PRN Reason: Dry Skin Ondansetron HCl (Zofran Odt) 4 mg PO Q6H PRN PRN Reason: Nausea/Vomiting Ondansetron HCl (Zofran) 4 mg IVP Q6H PRN PRN Reason: Nausea/Vomiting Pantoprazole Sodium (Protonix) 40 mg IVP 2100 [facility] Last Admin: 07/02/17 21:01 Dose: 40 mg Sodium Chloride (Flush - Normal Saline) 10 ml IVF Q12HR [facility] Last Admin: 07/03/17 08:32 Dose: Not Given Sodium Chloride (Flush - Normal Saline) 10 ml IVF PRN PRN PRN Reason: Saline Flush Sodium Chloride ([place] Nasal [place] 0.65%) 0 ml EA NARE QIDPRN PRN PRN Reason: Nasal Congestion Zolpidem Tartrate (Ambien) 5 mg PO HSPRN PRN PRN Reason: Insomnia
[2017-07-03] MEDS: Pantoprazole 40 MG VIAL IVP SCH (21:04)
--- NOTE | 2017-07-04 05:41 | PRG ---
HOSPITAL VISIT NOTE DATE OF SERVICE: 07/03/2017 SUBJECTIVE: This is a 36-year-old male hospitalized with abdominal pain, nausea, vomiting and blood y diarrhea. The EGD was negative for hematology. He had colonoscopy on 06/30/2017 and was found to have diffuse colitis. The impression was that he most likely has ulcerative colitis. He i s on IV steroids and his symptoms markedly improved. Stools are much less in frequency. The stools are in consistency. He has no abdominal pain, no nausea, no vomiting. He is tolerating diet . OBJECTIVE: GENERAL: Appears comfortable. VITAL SIGNS: Stable. Temperature 98.1 degrees Fahrenheit, pulse is 89, blood pressure is 132/76. CARDIOVASCULAR SYSTEM: Within normal limits. LUNGS: Within normal limits. ABDOMEN: Soft to palpate. No organomegaly. No tenderness. No masses. CLINICAL IMPRESSION: Inflammatory bowel disease - most likely ulcerative colitis. RECOMMENDATIONS: 1. Continue steroids. 2. Continue supportive care. 3. Follow up labs.
[2017-07-04] MEDS: metroNIDAZOLE 500 MG in Premix Bag 1 BAG IVPB SCH ×3 (06:06→21:16)
[2017-07-04] MEDS: Potassium Chloride 40 MEQ in Sodium Chloride 0.45% 1,000 ML IV SCH ×2 (06:08→21:48)
[2017-07-04] MEDS: Mesalamine DR 400 mg Capsule PO SCH ×3 (07:33→17:11)
[2017-07-04] MEDS: Enoxaparin Sodium 30 MG/0.3 ML SYRINGE SC SCH (07:36)
[2017-07-04 09:42] LABS: Hematocrit 26.1 % (42.0-52.0); Mean Platelet Volume 5.5 fL (7.4-10.4); White Blood Cell (WBC) Count 14.6 thou/uL (4.8-10.8)
[2017-07-04 09:46] LABS: ALT (SGPT) 13 U/L (8-55); AST (SGOT) 12 U/L (5-34); Alkaline Phosphatase 62 U/L (40-150); Anion Gap 12 mmol/L (10-20); BUN (Urea Nitrogen) 5 mg/dL (8.9-20.6); Bilirubin, Total Less than 0.2 mg/dL (0.2-1.2); Calc. Creatinine Clearance 141 mL/min (70-130); Calcium 8.5 mg/dL (7.8-10.44); Carbon Dioxide 22 mmol/L (22-29); Chloride 105 mmol/L (98-107); Estimated GFR-MDRD Greater than 90; Globulin 3.5 g/dL (2.4-3.5); Protein, Total 5.9 g/dL (6.0-8.3)
[2017-07-04 10:14] LABS: Band 12 % (5-11); Hypochromia SLIGHT = 6-15 cells (100X) (0-5/hpf); Neutrophil 74 % (42-75); Polychromasia MODERATE = 3-4 cells (100X) (0-2/hpf); Reactive Lymphocytes 1 % (0-10)
--- NOTE | 2017-07-04 13:14 | PDOC.PN ---
- Subjective Encounter Start Date: 07/04/17 Encounter Start Time: 09:30 pt has total 6 diarrhoea in 24 hours, no fever - Objective Resuscitation Status: Resuscitation Status FULL:Full Resuscitation MAR Reviewed: Yes Vital Signs & Weight: Vital Signs (12 hours) Temp Pulse Resp BP Pulse Ox 07/04/17 08:00 97.9 F 86 18 97 07/04/17 07:53 97.9 F 86 18 129/81 97 Weight Weight 164 lb 4.8 oz I&O: 07/03/17 07/04/17 07/05/17 06:59 06:59 06:59 Intake Total 1700 2710 Output Total 70 300 Balance 1630 2410 Result Diagrams: 07/04/17 09:04 07/04/17 09:04 Phys Exam - Physical Examination Constitutional: NAD HEENT: PERRLA, moist MMs, sclera anicteric Neck: no JVD, supple Respiratory: no wheezing, no rales, no rhonchi Cardiovascular: RRR, no significant murmur, no rub Gastrointestinal: soft, non-tender, no distention, positive bowel sounds Musculoskeletal: no edema, pulses present Neurological: non-focal, normal sensation, moves all 4 limbs Psychiatric: normal affect, A&O x 3 Skin: no rash, normal turgor Dx/Plan (1) Campylobacter antigen positive Code(s): A04.5 - CAMPYLOBACTER ENTERITIS Status: Acute (2) Exacerbation of ulcerative colitis Code(s): K51.90 - ULCERATIVE COLITIS, UNSPECIFIED, WITHOUT COMPLICATIONS Status: Acute (3) Reactive thrombocytosis Code(s): R79.89 - OTHER SPECIFIED ABNORMAL FINDINGS OF BLOOD CHEMISTRY Status : Acute (4) Anemia of chronic disease Code(s): D63.8 - ANEMIA IN OTHER CHRONIC DISEASES CLASSIFIED ELSEWHERE Status : Chronic (5) Hypokalemia Code(s): E87.6 - HYPOKALEMIA Status: Resolved (6) Hyponatremia Code(s): E87.1 - HYPO-OSMOLALITY AND HYPONATREMIA Status: Resolved - Plan cont current plan of care, continue antibiotics * continue iv levaquin and flagyl * continue iv steroid * if GI ok , will plan for discharge tomorrow * ramicade decision after discharge * pending quantiferon test result * medication reviewed as below * symptomatic treatment. Review of Systems - Review of Systems ENT: negative: Ear Pain, Ear Discharge, Nose Pain, Nose Discharge, Nose Congestion, Mouth Pain, Mouth Swelling, Throat Pain, Throat Swelling, Other Respiratory: negative: Cough, Dry, Shortness of Breath, Hemoptysis, SOB with Excertion, Pleuritic Pain, Sputum, Wheezing Cardiovascular: negative: Chest Pain, Palpitations, Orthopnea, Paroxysmal Noc. Dyspnea, Edema, Light Headedness, Other Gastrointestinal: Diarrhea. negative: Nausea, Vomiting, Abdominal Pain, Constipation, Melena, Hematochezia, Other Genitourinary: negative: Dysuria, Frequency, Incontinence, Hematuria, Retention , Other Musculoskeletal: negative: Neck Pain, Shoulder Pain, Arm Pain, Back Pain, Hand Pain, Leg Pain, Foot Pain, Other Skin: negative: Rash, Lesions, Panchito, Bruising, Other - Medications/Allergies Allergies/Adverse Reactions: Allergies Allergy/AdvReac Type Severity Reaction Status Date / Time No Known Drug Allergies Allergy Verified 06/30/17 04:37 Medications: Current Medications Acetaminophen (Tylenol) 650 mg PO Q4H PRN PRN Reason: Headache/Fever or Mild Pain Hydrocodone Bitart/Acetaminophen ([place] 5/325) 1 tab PO Q4H PRN PRN Reason: Moderate Pain (4-6) Al Hydroxide/Mg Hydroxide (Maalox) 15 ml PO Q4H PRN PRN Reason: Heartburn or Indigestion Artificial Tears (Tears Naturale) 0 drop EA EYE PRN PRN PRN Reason: Dry Eyes Enoxaparin Sodium (Lovenox) 30 mg SC 0900 [facility] Last Admin: 07/04/17 07:36 Dose: 30 mg Guaifenesin (Robitussin Sf) 200 mg PO Q4H PRN PRN Reason: Cough Hydralazine HCl (Apresoline) 10 mg SLOW IVP Q4H PRN PRN Reason: Systolic BP > 180 Potassium Chloride 40 meq/ (Sodium Chloride) 1,020 mls @ 75 mls/hr IV .[id number] [facility] Last Admin: 07/04/17 06:08 Dose: 1,020 mls Levofloxacin 500 mg/ Device 100 mls @ 100 mls/hr IVPB 1800 [facility] Last Admin: 07/03/17 17:48 Dose: 100 mls Metronidazole 500 mg/ Device 100 mls @ 100 mls/hr IVPB Q8HR [facility] Last Admin: 07/04/17 06:06 Dose: 100 mls Loratadine (Claritin) 10 mg PO DAILYPRN PRN PRN Reason: Sinus Symptoms Mesalamine (Delzicol Dr) 800 mg PO TID-WM [facility] Last Admin: 07/04/17 11:58 Dose: 800 mg Methylprednisolone Sodium Succinate (Solu-Medrol) 20 mg IVP Q8HR [facility] Last Admin: 07/04/17 06:06 Dose: 20 mg Mineral Oil/White Petrolatum (Eucerin Cream) 0 gm TOP BIDPRN PRN PRN Reason: Dry Skin Ondansetron HCl (Zofran Odt) 4 mg PO Q6H PRN PRN Reason: Nausea/Vomiting Ondansetron HCl (Zofran) 4 mg IVP Q6H PRN PRN Reason: Nausea/Vomiting Pantoprazole Sodium (Protonix) 40 mg IVP 2100 [facility] Last Admin: 07/03/17 21:04 Dose: 40 mg Sodium Chloride (Flush - Normal Saline) 10 ml IVF Q12HR [facility] Last Admin: 07/04/17 07:36 Dose: Not Given Sodium Chloride (Flush - Normal Saline) 10 ml IVF PRN PRN PRN Reason: Saline Flush Sodium Chloride ([place] Nasal [place] 0.65%) 0 ml EA NARE QIDPRN PRN PRN Reason: Nasal Congestion Zolpidem Tartrate (Ambien) 5 mg PO HSPRN PRN PRN Reason: Insomnia
[2017-07-04] MEDS: Pantoprazole 40 MG VIAL IVP SCH (21:16)
--- NOTE | 2017-07-05 00:31 | PRG ---
DATE OF SERVICE: 07/04/2017 FOLLOWUP HOSPITAL VISIT NOTE SUBJECTIVE: This is a 36-year-old -[place] male hospitalized with abdominal pain, nausea, vomiting, diarrhea, hematochezia. A colonoscopy performed over the weekend revealed severe colitis. The colitis was diffuse. He is on IV Solu-Medrol, Asacol, and IV antibiotics. He has been started on a regular diet this morning. He has had 2 stools by lunch time. The stools remained watery. He had no abdominal pain. No nausea, or vomiting. He had no rectal bleeding. PHYSICAL EXAMINATION: GENERAL: He is afebrile. Pulse is 86, blood pressure 129/81. CARDIOVASCULAR: First and second heart sounds normal. LUNGS: Clear to auscultation. ABDOMEN: Soft to palpate. Abdomen is nontender. No organomegaly or masses. LABORATORY DATA: His lab data from today WBC 14,600, hemoglobin 8.2, hematocrit 26.1, platelet count 607,000, polymorphs 74, bands 12. Serum chemistries are normal, potassium 4.8. The colon biopsy showed chronic active colitis. RECOMMENDATIONS: Await one more day. If the stool frequency remains 3-4, consider discharge hopefully in the next 24 hours. MTDD
[2017-07-05] MEDS: metroNIDAZOLE 500 MG in Premix Bag 1 BAG IVPB SCH (05:37)
--- NOTE | 2017-07-05 06:23 | PDOC.PN ---
- Subjective Encounter Start Date: 07/05/17 Encounter Start Time: 06:21 Patient seen and examined. No new complaints. No overnight events - Objective Resuscitation Status: Resuscitation Status FULL:Full Resuscitation MAR Reviewed: Yes Vital Signs & Weight: Vital Signs (12 hours) Temp Pulse Resp BP Pulse Ox 07/04/17 19:58 98 F 96 20 100 07/04/17 19:48 98.0 F 96 20 131/74 100 Weight Weight 164 lb 4.8 oz I&O: 07/03/17 07/04/17 07/05/17 06:59 06:59 06:59 Intake Total 1700 2710 3000 Output Total 70 300 600 Balance 1630 2410 2400 Result Diagrams: 07/04/17 09:04 07/04/17 09:04 Phys Exam - Physical Examination Constitutional: NAD HEENT: PERRLA, moist MMs, sclera anicteric Neck: no JVD, supple Respiratory: no wheezing, no rales, no rhonchi Cardiovascular: RRR, no significant murmur, no rub Gastrointestinal: soft, non-tender, no distention, positive bowel sounds Musculoskeletal: no edema, pulses present Neurological: non-focal, normal sensation Psychiatric: normal affect, A&O x 3 Skin: no rash, normal turgor Dx/Plan (1) Campylobacter antigen positive Code(s): A04.5 - CAMPYLOBACTER ENTERITIS Status: Acute (2) Exacerbation of ulcerative colitis Code(s): K51.90 - ULCERATIVE COLITIS, UNSPECIFIED, WITHOUT COMPLICATIONS Status: Acute (3) Reactive thrombocytosis Code(s): R79.89 - OTHER SPECIFIED ABNORMAL FINDINGS OF BLOOD CHEMISTRY Status : Acute (4) Anemia of chronic disease Code(s): D63.8 - ANEMIA IN OTHER CHRONIC DISEASES CLASSIFIED ELSEWHERE Status : Chronic (5) Hypokalemia Code(s): E87.6 - HYPOKALEMIA Status: Resolved (6) Hyponatremia Code(s): E87.1 - HYPO-OSMOLALITY AND HYPONATREMIA Status: Resolved - Plan cont current plan of care, continue antibiotics * pt has finished 7 days antibiotics * on discharge will consider giving oral steroid and 3 more days antibiotics. * medication reviewed as below * symptomatic treatment Review of Systems - Review of Systems ENT: negative: Ear Pain, Ear Discharge, Nose Pain, Nose Discharge, Nose Congestion, Mouth Pain, Mouth Swelling, Throat Pain, Throat Swelling, Other Respiratory: negative: Cough, Dry, Shortness of Breath, Hemoptysis, SOB with Excertion, Pleuritic Pain, Sputum, Wheezing Cardiovascular: negative: Chest Pain, Palpitations, Orthopnea, Paroxysmal Noc. Dyspnea, Edema, Light Headedness, Other Gastrointestinal: negative: Nausea, Vomiting, Abdominal Pain, Diarrhea, Constipation, Melena, Hematochezia, Other Genitourinary: negative: Dysuria, Frequency, Incontinence, Hematuria, Retention , Other Musculoskeletal: negative: Neck Pain, Shoulder Pain, Arm Pain, Back Pain, Hand Pain, Leg Pain, Foot Pain, Other - Medications/Allergies Allergies/Adverse Reactions: Allergies Allergy/AdvReac Type Severity Reaction Status Date / Time No Known Drug Allergies Allergy Verified 06/30/17 04:37 Medications: Current Medications Acetaminophen (Tylenol) 650 mg PO Q4H PRN PRN Reason: Headache/Fever or Mild Pain Hydrocodone Bitart/Acetaminophen ([place] 5/325) 1 tab PO Q4H PRN PRN Reason: Moderate Pain (4-6) Al Hydroxide/Mg Hydroxide (Maalox) 15 ml PO Q4H PRN PRN Reason: Heartburn or Indigestion Artificial Tears (Tears Naturale) 0 drop EA EYE PRN PRN PRN Reason: Dry Eyes Enoxaparin Sodium (Lovenox) 30 mg SC 0900 [facility] Last Admin: 07/04/17 07:36 Dose: 30 mg Guaifenesin (Robitussin Sf) 200 mg PO Q4H PRN PRN Reason: Cough Hydralazine HCl (Apresoline) 10 mg SLOW IVP Q4H PRN PRN Reason: Systolic BP > 180 Potassium Chloride 40 meq/ (Sodium Chloride) 1,020 mls @ 75 mls/hr IV .[id number] [facility] Last Admin: 07/04/17 21:48 Dose: 1,020 mls Levofloxacin 500 mg/ Device 100 mls @ 100 mls/hr IVPB 1800 [facility] Last Admin: 07/04/17 17:11 Dose: 100 mls Metronidazole 500 mg/ Device 100 mls @ 100 mls/hr IVPB Q8HR [facility] Last Admin: 07/05/17 05:37 Dose: 100 mls Loratadine (Claritin) 10 mg PO DAILYPRN PRN PRN Reason: Sinus Symptoms Mesalamine (Delzicol Dr) 800 mg PO TID-WM [facility] Last Admin: 07/04/17 17:11 Dose: 800 mg Methylprednisolone Sodium Succinate (Solu-Medrol) 20 mg IVP Q8HR [facility] Last Admin: 07/05/17 05:37 Dose: 20 mg Mineral Oil/White Petrolatum (Eucerin Cream) 0 gm TOP BIDPRN PRN PRN Reason: Dry Skin Ondansetron HCl (Zofran Odt) 4 mg PO Q6H PRN PRN Reason: Nausea/Vomiting Ondansetron HCl (Zofran) 4 mg IVP Q6H PRN PRN Reason: Nausea/Vomiting Pantoprazole Sodium (Protonix) 40 mg IVP 2100 [facility] Last Admin: 07/04/17 21:16 Dose: 40 mg Sodium Chloride (Flush - Normal Saline) 10 ml IVF Q12HR [facility] Last Admin: 07/04/17 21:16 Dose: 10 ml Sodium Chloride (Flush - Normal Saline) 10 ml IVF PRN PRN PRN Reason: Saline Flush Sodium Chloride ([place] Nasal [place] 0.65%) 0 ml EA NARE QIDPRN PRN PRN Reason: Nasal Congestion Zolpidem Tartrate (Ambien) 5 mg PO HSPRN PRN PRN Reason: Insomnia
[2017-07-05] MEDS: Mesalamine DR 400 mg Capsule PO SCH (07:14)
[2017-07-05] MEDS: Enoxaparin Sodium 30 MG/0.3 ML SYRINGE SC SCH (07:20)
[2017-07-05 08:54] VITALS: BP 153/82; TEMP 98.2
--- NOTE | 2017-07-05 10:21 | DIS ---
DATE OF ADMISSION: 06/29/2017 DATE OF DISCHARGE: 07/05/2017 PRIMARY CARE PHYSICIAN: [facility] call admission. DISCHARGE DISPOSITION: Long Term. PRIMARY DISCHARGE DIAGNOSES: 1. Acute exacerbation of ulcerative colitis. 2. Campylobacter antigen positive. 3. Reactive thrombocytosis. 4. Hypokalemia, corrected. 5. Hyponatremia, corrected. SECONDARY DISCHARGE DIAGNOSES: Anemia of chronic disease, active ulcerative colitis. PRIMARY PROCEDURE/OPERATION: Dr. Topete did colonoscopy as well as upper endoscopy. Colonoscopy showed severe colitis. EGD showed small erosions in the stomach. RADIOLOGICAL INVESTIGATION: None. SIGNIFICANT LABORATORY DATA: WBC 14.6, hemoglobin 8.2, platelets 607. INR 1.1 , sodium 134, potassium 4.8, BUN 5, creatinine 0.77, AST 12, ALT 13, alkaline phosphatase 62, albumin 2.4. Hepatitis profile and HIV negative. Stool for infection workup showed Campylobacter antigen positive. DISCHARGE MEDICATIONS: Cipro 500 mg p.o. twice daily for 3 days, Flagyl 500 mg t.i.d. for 3 days, Asacol HD 800 mg t.i.d., Protonix 40 mg p.o. daily, potassium chloride 10 mEq p.o. b.i.d., Imuran 100 mg p.o. daily, prednisone 60 mg p.o. daily and taper 10 mg every 10 days until finished. CONTRAINDICATIONS: None. CODE STATUS: FULL CODE. INPATIENT CONSULTANTS: Dr. Topete and Dr. Walls were following while in hospital. Pulmonary group was following while in hospital because patient was admitted initially in the [facility]. TEST RESULTS PENDING ON DISCHARGE: None. ALLERGIES: No known drug allergy. DISCHARGE PLAN: Post hospital, patient is discharged back to assisted and he will follow up with Dr. Walls after discharge. HOSPITAL COURSE: A 36-year-old male who was admitted by Dr. Ibrahim on 04/2017. Please see his H&P for further details. Patient was admitted for nausea, vomiting, and bloody diarrhea. The patient initially went to [facility] Emergency Room where he had an initial workup. Subsequently this patient was transferred to our hospital for further admission. He was admitted in [facility]. He had abnormal electrolyte that was corrected while in hospital. He was severely dehydrated and that was corrected with IV fluid. His stool study came back positive for Campylobacter antigen and rest of workup is negative. Dr. Topete was consulted and he did colonoscopy and pathology report was consistent with active colitis. While in hospital, his colitis was treated with Solu-Medrol, empiric antibiotic therapy with Levaquin and Flagyl. He was also given IV fluids with potassium. His diarrhea significantly improved. By the time of discharge, he has only 3-4 bowel movements per day. His hematochezia significantly improved. His hemoglobin remained stable. Today, I spoke with Dr. Walls he recommends to start Imuran 100 mg daily, along with prednisone 60 mg p.o. daily and tapering 10 mg every days. He will continue Asacol HD 800 mg p.o. t.i.d. He has TB QuantiFERON test done while in hospital, but result is pending. If this therapy does not work out well with him, then he may need Remicade therapy. The patient is seen and examined at bedside today. Please see my progress note from today for further details. Total time spent on discharge day more than 30 minutes. MTDD
--- NOTE | 2017-07-06 06:04 | PRG ---
DATE OF SERVICE: 07/05/2017 HISTORY OF PRESENT ILLNESS: This is a 36-year-old -[place] male with previously diagnosed IB D and was told he had Crohn's disease in 04/2017. Apparently, he was hospitalized in [place] and had a colonoscopy. The patient was started on prednisone and mesalamine. The patient has had a rela pse of colitis. He has had a colonoscopy on Monday and was found to have diffuse colitis. He was st arted on IV Solu-Medrol and has done very well. The patient's diarrhea has markedly improved. He spears s been tolerating a regular diet from yesterday morning. He had a total of only 4 stools yesterday. The stools remained watery. He also had mild bleeding in the stool. No abdominal pain, no nausea, no vomiting. PHYSICAL EXAMINATION: GENERAL: Appears comfortable, afebrile. Pulse is 73, blood pressure 130/70. CARDIOVASCULAR: First and second heart sounds normal. LUNGS: Clear to auscultation. ABDOMEN: Soft to palpate. No organomegaly. No tenderness. RECOMMENDATIONS: From GI standpoint, the patient will be discharged home. DISCHARGE MEDICATIONS: Include: 1. Prednisone 60 mg p.o. once a day, we will taper off 10 mg by every 10 days. 2. Asacol 800 mg 3 times a day. 3. Azathioprine 100 mg p.o. once a day. 4. Protonix p.r.n. 5. He needs to be referred to a personal service workers and be seen in the [facility]. The patient will follow with his doctor at the [facility].
== END 2017-07-05 12:05 | DRG 372 ==
LOC: ERS 21:25 → IMCU/EMU 23:31 → T4-A 07-01 15:56
PROVIDERS: ADMIT Internal Medicine; ATTEND Internal Medicine
PROC: 0DB98ZX Excision of Duodenum, Via Natural or Artificial Opening Endoscopic, Diagnostic (ICD-10-PCS; principal; 2017-06-28)
PROC: 0DB68ZX Excision of Stomach, Via Natural or Artificial Opening Endoscopic, Diagnostic (ICD-10-PCS; 2017-06-28)
PROC: 0DBK8ZX Excision of Ascending Colon, Via Natural or Artificial Opening Endoscopic, Diagnostic (ICD-10-PCS; 2017-06-28)
PROC: 0DBL8ZX Excision of Transverse Colon, Via Natural or Artificial Opening Endoscopic, Diagnostic (ICD-10-PCS; 2017-06-28)
PROC: 0DBM8ZX Excision of Descending Colon, Via Natural or Artificial Opening Endoscopic, Diagnostic (ICD-10-PCS; 2017-06-28)
DX: A04.5 Campylobacter enteritis (principal); K50.90 Crohn's disease, unspecified, without complications; K92.0 Hematemesis; E44.0 Moderate protein-calorie malnutrition; E87.1 Hypo-osmolality and hyponatremia; D62 Acute posthemorrhagic anemia; K92.1 Melena; D63.8 Anemia in other chronic diseases classified elsewhere; K25.9 Gastric ulcer, unspecified as acute or chronic, without hemorrhage or perforation; Z87.891 Personal history of nicotine dependence; E87.6 Hypokalemia; E86.0 Dehydration; R19.7 Diarrhea, unspecified; Z68.21 Body mass index [BMI] 21.0-21.9, adult; R00.0 Tachycardia, unspecified; D47.3 Essential (hemorrhagic) thrombocythemia
CPT/HCPCS: 36415; 80048; 80053; 83735; 84100; 85025; 85610; 85730; 86140; 86480; 86706; 86850; 86860; 86870; 86880; 86900; 86901; 86904; 86922; 86978; 87015; 87045; 87046; 87081; 87324; 87340; 87389; 87449; 87899; 88305; 88342; 96365; 96375; 96376; A4216; C9113; J1650; J1956; J2001; J2405; J2704; J2920; J3475; J3480; J7042; J7050